=== PATIENT | male | born 1975 | race Hispanic/Latino ===

== ENCOUNTER 2024-08-04 18:55 | Inpatient (IN) | payer OTHER ==
[2024-08-04] MEDS ORDERED: Acetaminophen 325 MG TAB PO PRN (22:34)
[2024-08-04] MEDS ORDERED: Electrolyte Replacement Protocol FS SCH (22:45)
[2024-08-04] MEDS ORDERED: Dextrose 5% in Water 1,000 ML IV PRN (23:05)
[2024-08-04] MEDS ORDERED: Glucagon 1 MG/ML KIT IM PRN (23:05)
[2024-08-04] MEDS ORDERED: Dextrose 50% Abboject 50 ML SYRINGE SLOW IVP PRN (23:05)
[2024-08-04] MEDS ORDERED: Insulin Lispro 100 UNIT/ML 10 ML VIAL SC PRN ×2 (23:05)
[2024-08-04] MEDS: Morphine 2 MG/ML VIAL SLOW IVP PRN (23:57)
[2024-08-04] MEDS: Ondansetron PF 4 MG/2 ML Vial IVP PRN (23:57)
[2024-08-04] MEDS: Lactated Ringer's 1,000 ML IV SCH (23:58)
[2024-08-05 00:10] VITALS: BMI 37.7
[2024-08-05] MEDS: Piperacillin/Tazobactam 3.375 GM in Sodium Chloride 0.9% 100 ML IVPB SCH (01:44)
[2024-08-05 05:44] LABS: #Basophils Less than 0.03 10x3/uL (0.0-0.2); %Basophils 0.2 % (0.0-1.0); %Eosinophils 0.6 % (0.0-10.0); %Lymphocytes 10.2 % (21.0-51.0); %Neutrophils 79.4 % (42.0-75.0); Hematocrit 34.6 % (42.0-52.0); Hemoglobin 11.7 g/dL (14.0-18.0); Mean Corpuscular HGB CONC 33.8 g/dL (32.0-36.0); Mean Corpuscular Volume 91.5 fL (78.0-98.0); Mean Platelet Volume 10.6 fL (7.4-10.4); Platelet Count 119 10x3/uL (130-400); RBC Distribution Width 14.3 % (11.5-14.5); Red Blood Cell (RBC) Count 3.78 mill/uL (4.70-6.10)
[2024-08-05] MEDS: Simethicone Chewable 80 MG TAB PO SCH (05:50)
[2024-08-05 06:04] LABS: ALT (SGPT) 19 U/L (Less than 45); AST (SGOT) 47 U/L (11-34); Albumin 2.6 g/dL (3.1-4.5); Alkaline Phosphatase 85 U/L (40-110); Anion Gap 12 mmol/L (10-20); BUN (Urea Nitrogen) 18 mg/dL (8.9-20.6); Calc. Creatinine Clearance 154 mL/min (70-130); Calcium 7.7 mg/dL (7.8-10.44); Carbon Dioxide 19 mmol/L (22-29); Chloride 106 mmol/L (98-107); Estimated GFR 105; Globulin 3.4 g/dL (2.4-3.5); Glucose 116 mg/dL (70-105); Lipase 209 U/L (8-78); Magnesium 2.1 mg/dL (1.6-2.6); Sodium 133 mmol/L (136-145)
[2024-08-05] MEDS: Amlodipine 5 MG TAB PO SCH (08:44)
[2024-08-05] MEDS: Folic Acid 1 MG TAB PO SCH (08:44)
[2024-08-05] MEDS: Multivitamin W/ Minerals 1 TAB PO SCH (08:45)
[2024-08-05] MEDS: Thiamine 100 MG TAB PO SCH (08:45)
[2024-08-05] MEDS: Senokot S 8.6-50 MG TAB PO SCH (08:45)
[2024-08-05] MEDS: Enoxaparin 100 MG (1 mL) SYRINGE SC SCH (08:45)
[2024-08-05] MEDS: FLU (Fluarix Triv) TS24-25(6MOS UP)/PF 45 MCG/0.5 ML Syringe IM ONE (08:46)
[2024-08-05] MEDS: Pantoprazole 40 MG VIAL IVP SCH (08:46)
[2024-08-05 09:40] VITALS: BMI 37.7
[2024-08-05] MEDS: Polyethylene Glycol 3350 17 GM Packet PO PRN (17:25)
[2024-08-05] MEDS: Atorvastatin Calcium 40 MG TAB PO SCH (21:38)
[2024-08-05] MEDS: Enoxaparin 120 MG/0.8 ML SYRINGE SC SCH (21:44)
[2024-08-06 05:29] LABS: #Basophils Less than 0.03 10x3/uL (0.0-0.2); %Basophils 0.2 % (0.0-1.0); %Eosinophils 0.8 % (0.0-10.0); %Lymphocytes 12.5 % (21.0-51.0); %Monocytes 9.8 % (0.0-10.0); %Neutrophils 76.1 % (42.0-75.0); Hematocrit 36.4 % (42.0-52.0); Hemoglobin 12.4 g/dL (14.0-18.0); Mean Corpuscular HGB CONC 34.1 g/dL (32.0-36.0); Mean Corpuscular Hemoglobin 31.2 pg (27.0-31.0); Mean Corpuscular Volume 91.5 fL (78.0-98.0); Mean Platelet Volume 10.7 fL (7.4-10.4); Platelet Count 121 10x3/uL (130-400); RBC Distribution Width 13.7 % (11.5-14.5); Red Blood Cell (RBC) Count 3.98 mill/uL (4.70-6.10)
[2024-08-06 05:48] LABS: ALT (SGPT) 22 U/L (Less than 45); AST (SGOT) 65 U/L (11-34); Albumin 2.5 g/dL (3.1-4.5); Alkaline Phosphatase 110 U/L (40-110); Anion Gap 14 mmol/L (10-20); BUN (Urea Nitrogen) 11 mg/dL (8.9-20.6); Bilirubin, Total 0.9 mg/dL (0.3-1.2); Calc. Creatinine Clearance 154 mL/min (70-130); Calcium 7.9 mg/dL (7.8-10.44); Carbon Dioxide 18 mmol/L (22-29); Chloride 103 mmol/L (98-107); Estimated GFR 105; Globulin 4.1 g/dL (2.4-3.5); Glucose 105 mg/dL (70-105); Magnesium 2.1 mg/dL (1.6-2.6); Protein, Total 6.6 g/dL (6.0-8.3); Sodium 130 mmol/L (136-145)
[2024-08-06] MEDS: Lactated Ringer's 1,000 ML IV SCH (17:47)
[2024-08-07 06:18] LABS: #Basophils Less than 0.03 10x3/uL (0.0-0.2); %Basophils 0.1 % (0.0-1.0); %Eosinophils 1.2 % (0.0-10.0); %Lymphocytes 12.9 % (21.0-51.0); %Monocytes 11.6 % (0.0-10.0); %Neutrophils 73.2 % (42.0-75.0); Hematocrit 34.1 % (42.0-52.0); Hemoglobin 11.9 g/dL (14.0-18.0); Mean Corpuscular HGB CONC 34.9 g/dL (32.0-36.0); Mean Corpuscular Hemoglobin 30.9 pg (27.0-31.0); Mean Corpuscular Volume 88.6 fL (78.0-98.0); Mean Platelet Volume 10.2 fL (7.4-10.4); Platelet Count 138 10x3/uL (130-400); RBC Distribution Width 13.4 % (11.5-14.5); Red Blood Cell (RBC) Count 3.85 mill/uL (4.70-6.10)
[2024-08-07 06:32] LABS: ALT (SGPT) 18 U/L (Less than 45); AST (SGOT) 39 U/L (11-34); Albumin 2.3 g/dL (3.1-4.5); Alkaline Phosphatase 94 U/L (40-110); Anion Gap 11 mmol/L (10-20); BUN (Urea Nitrogen) 8 mg/dL (8.9-20.6); Bilirubin, Total 0.9 mg/dL (0.3-1.2); Calc. Creatinine Clearance 140 mL/min (70-130); Calcium 7.9 mg/dL (7.8-10.44); Carbon Dioxide 26 mmol/L (22-29); Chloride 103 mmol/L (98-107); Estimated GFR 93; Globulin 3.6 g/dL (2.4-3.5); Glucose 130 mg/dL (70-105); Magnesium 1.8 mg/dL (1.6-2.6); Potassium 3.6 mmol/L (3.5-5.1); Protein, Total 5.9 g/dL (6.0-8.3); Sodium 136 mmol/L (136-145)
[2024-08-07] MEDS: Magnesium 2 GM/50 ML(in water) 2 GM in Premix 1 BAG IVPB SCH (10:03)
[2024-08-07] MEDS: Lactated Ringer's 1,000 ML IV SCH (16:36)
[2024-08-07] MEDS ORDERED: Lorazepam 0.5 MG TAB PO PRN (22:40)
[2024-08-08 07:15] LABS: #Basophils 0.03 10x3/uL (0.0-0.2); %Basophils 0.3 % (0.0-1.0); %Eosinophils 1.2 % (0.0-10.0); %Lymphocytes 15.3 % (21.0-51.0); %Monocytes 9.4 % (0.0-10.0); %Neutrophils 71.9 % (42.0-75.0); Hematocrit 36.2 % (42.0-52.0); Hemoglobin 12.4 g/dL (14.0-18.0); Mean Corpuscular HGB CONC 34.3 g/dL (32.0-36.0); Mean Corpuscular Hemoglobin 30.5 pg (27.0-31.0); Mean Corpuscular Volume 89.2 fL (78.0-98.0); Mean Platelet Volume 10.5 fL (7.4-10.4); Platelet Count 180 10x3/uL (130-400); RBC Distribution Width 13.4 % (11.5-14.5); Red Blood Cell (RBC) Count 4.06 mill/uL (4.70-6.10)
[2024-08-08 07:55] LABS: Anion Gap 14 mmol/L (10-20); BUN (Urea Nitrogen) 6 mg/dL (8.9-20.6); Calc. Creatinine Clearance 163 mL/min (70-130); Calcium 8.4 mg/dL (7.8-10.44); Carbon Dioxide 20 mmol/L (22-29); Chloride 104 mmol/L (98-107); Estimated GFR 107; Glucose 165 mg/dL (70-105); Lipase 146 U/L (8-78); Potassium 3.8 mmol/L (3.5-5.1); Sodium 134 mmol/L (136-145)
[2024-08-08 15:04] VITALS: BP 133/84; TEMP 98.4
== END 2024-08-08 14:54 | disposition home or self-care (01) | DRG 438 ==
LOC: T4-A 18:55
PROVIDERS: ADMIT Internal Medicine; ATTEND Family Medicine
DX: K85.20 Alcohol induced acute pancreatitis without necrosis or infection (principal); K55.059 Acute (reversible) ischemia of intestine, part and extent unspecified; E87.1 Hypo-osmolality and hyponatremia; K56.7 Ileus, unspecified; N39.0 Urinary tract infection, site not specified; F10.20 Alcohol dependence, uncomplicated; E11.65 Type 2 diabetes mellitus with hyperglycemia; E78.1 Pure hyperglyceridemia; F14.10 Cocaine abuse, uncomplicated; Z79.899 Other long term (current) drug therapy; K59.00 Constipation, unspecified; K85.21 Alcohol induced acute pancreatitis with uninfected necrosis; R00.0 Tachycardia, unspecified; R74.01 Elevation of levels of liver transaminase levels; K76.0 Fatty (change of) liver, not elsewhere classified; R11.2 Nausea with vomiting, unspecified; Y90.6 Blood alcohol level of 120-199 mg/100 ml
CPT/HCPCS: 36415; 36416; 71045; 74177; 76705; 80048; 80053; 80061; 80074; 80306; 80307; 81001; 82248; 82805; 83036; 83605; 83690; 83735; 84100; 84443; 84478; 84484; 85025; 86140; 87086; 88112; 93005; 93010; 93306; 96374; 96375; 96376; J0696; J1171; J1650; J1815; J1885; J2270; J2272; J2405; J2470; J2543; J2550; J3411; J3475; J3490; J7030; J7120; P9047; Q0162; Q9967